=== PATIENT | male | born 1960 | race Caucasian/White ===

== ENCOUNTER 2016-12-28 18:17 | Emergency (ER) | payer BC ==
[~2016-12-28] VITALS: Ht 175.3 cm; Wt 79.5 kg
[2016-12-28 18:31] VITALS: BP 153/67
== END 2016-12-28 18:25 | disposition left against medical advice (07) ==
LOC: EME 18:17
DX: R11.10 Vomiting, unspecified (principal); R10.9 Unspecified abdominal pain; Z53.21 Procedure and treatment not carried out due to patient leaving prior to being seen by health care provider
CPT/HCPCS: 99281; 99282